=== PATIENT | male | born 1960 | race Caucasian/White ===

== ENCOUNTER 2022-01-25 12:43 | Inpatient (IN) ==
[2022-01-25] MEDS ORDERED: ALBUTEROL 2.5 MG/3 ML NEB RESP TX PRN (17:21)
[2022-01-25] MEDS ORDERED: NOREPINEPHRINE 8 MG in SODIUM CHLORIDE 0.9% 242 ML IV PRN (17:21)
[2022-01-25] MEDS ORDERED: ACETAMINOPHEN 325 MG TABLET PO PRN (17:21)
[2022-01-25] MEDS ORDERED: DEXTROSE 10% 250 ML BAG IV PRN (17:27)
[2022-01-25] MEDS ORDERED: GLUCAGON 1 MG VIAL IM PRN (17:27)
[2022-01-25] MEDS: MIDAZOLAM 100 MG in SODIUM CHLORIDE 0.9% 80 ML IV PRN (18:02)
[2022-01-25 18:07] LABS: Arterial Base Excess iSTAT -6 MMOL/L (-2.5-2.5); Arterial Bicarbonate iSTAT 20.6 MMOL/L (20-26); Arterial O2 Saturation iSTAT 99 % (95-100); Arterial PCO2 iSTAT 44 MM HG (35-48); Arterial PO2 iSTAT 149 MM HG (80-95); Arterial Total CO2 iSTAT 22 MMO/L (23-27); Arterial pH iSTAT 7.281 (7.35-7.45)
[2022-01-25 18:13] LABS: Urine Appearance Clear (Clear); Urine Color Yellow (Yellow); Urine pH 5.5 (4.5-8.0)
[2022-01-25 18:14] LABS: Bilirubin,Urine Negative (Negative); Blood, Urine Trace mg/dL (Negative); Glucose,Urine (UA) >=1000 mg/dL (Negative); Ketones,Urine 40 mg/dL (Negative); Nitrite,Urine Negative (Negative); Protein,Urine Trace mg/dL (Negative); Urine Urobilinogen 0.2 eU/dL (<2.0)
[2022-01-25 18:18] LABS: Bacteria,Urine Moderate /HPF (Few); Mucus,Urine Occasional /LPF (Occasional); RBC,Urine 4 /HPF (0-4); Squamous Epithelial Cell,Urine Occasional /HPF (0-10)
[2022-01-25 18:27] LABS: Hematocrit 42.1 VOL% (42.0-52.0); Hemoglobin 13.1 GM/DL (14.0-18.0); Immature Granulocytes % 0.5 %; Immature Granulocytes Absolute 0.03 #; Lymphocytes # 0.4 10*3/uL (1.4-4.0); Lymphocytes % 6.3 % (21.2-54.2); Mean Corpuscular HGB Conc 31.1 GM/DL (32-36); Mean Corpuscular Volume 87.7 FL (87-102); Mean Platelet Volume 10.2 FL (9.6-12.0); Monocytes # 0.6 10*3/uL (0.11-0.8); Neutrophils % 83.2 % (38.7-73.9); Platelet Count 104 T/CUMM (130-400); Red Cell Distribution Width 14.3 % (9.3-17.3); White Blood Count 5.9 T/CUMM (4-12)
[2022-01-25] MEDS: PANTOPRAZOLE 40 MG VIAL IV SCH (18:33)
[2022-01-25] MEDS: MEROPENEM 500 MG in SODIUM CHLORIDE 0.9% 100 ML IV SCH (18:37)
[2022-01-25 18:38] LABS: PT Patient Result 10.9 SECS (10.1-12.1)
[2022-01-25] MEDS: INSULIN LISPRO 100 UNIT/ML SUBCUT SCH (18:42)
[2022-01-25 18:52] LABS: Lactic Acid 4.3 MMOL/L (0.4-2.0)
[2022-01-25 19:03] LABS: Alanine Aminotransferase 24 U/L (16-61); Albumin 2.8 G/DL (3.4-5.0); Alkaline Phosphatase 107 U/L (45-117); Aspartate Amino Transferase 23 U/L (0-37); Blood Urea Nitrogen 18 MG/DL (7-18); Carbon Dioxide 22 MMOL/L (21-32); Chloride 110 MMOL/L (98-107); Glucose 290 MG/DL (74-106); Osmolality,Calculated 291.4 MOS/KG (273-304); Potassium 3.9 MMOL/L (3.5-5.1); Sodium 140 MMOL/L (136-145); Total Protein 6.5 G/DL (6.4-8.2)
[2022-01-25 20:45] LABS: Arterial Base Excess iSTAT -4 MMOL/L (-2.5-2.5); Arterial Bicarbonate iSTAT 21.9 MMOL/L (20-26); Arterial O2 Saturation iSTAT 98 % (95-100); Arterial PCO2 iSTAT 42 MM HG (35-48); Arterial PO2 iSTAT 109 MM HG (80-95); Arterial Total CO2 iSTAT 23 MMO/L (23-27); Arterial pH iSTAT 7.325 (7.35-7.45)
[2022-01-25] MEDS: ENOXAPARIN 40 MG/0.4 ML SYRINGE SUBCUT SCH (21:00)
[2022-01-26] MEDS: SODIUM CHLORIDE 0.9% 1,000 ML IV SCH ×3 (01:08→17:36)
[2022-01-26] MEDS: MEROPENEM 500 MG in SODIUM CHLORIDE 0.9% 100 ML IV SCH ×4 (01:12→17:57)
[2022-01-26] MEDS: INSULIN LISPRO 100 UNIT/ML SUBCUT SCH ×4 (01:13→17:56)
[2022-01-26 03:44] LABS: Arterial Base Excess iSTAT -5 MMOL/L (-2.5-2.5); Arterial Bicarbonate iSTAT 20.8 MMOL/L (20-26); Arterial O2 Saturation iSTAT 98 % (95-100); Arterial PCO2 iSTAT 39 MM HG (35-48); Arterial PO2 iSTAT 120 MM HG (80-95); Arterial Total CO2 iSTAT 22 MMO/L (23-27); Arterial pH iSTAT 7.333 (7.35-7.45)
[2022-01-26 04:40] LABS: Basophils % 0.2 % (0.0-0.8); Hematocrit 35.4 VOL% (42.0-52.0); Hemoglobin 10.9 GM/DL (14.0-18.0); Immature Granulocytes % 0.5 %; Immature Granulocytes Absolute 0.02 #; Lymphocytes # 0.7 10*3/uL (1.4-4.0); Lymphocytes % 17.1 % (21.2-54.2); Mean Corpuscular HGB Conc 30.8 GM/DL (32-36); Mean Corpuscular Volume 88.7 FL (87-102); Mean Platelet Volume 10.2 FL (9.6-12.0); Monocytes # 0.5 10*3/uL (0.11-0.8); Monocytes % 10.8 % (1.7-12.7); Neutrophils % 71.4 % (38.7-73.9); Platelet Count 116 T/CUMM (130-400); Red Blood Count 3.99 MC/CUMM (3.8-5.5); Red Cell Distribution Width 14.4 % (9.3-17.3); White Blood Count 4.3 T/CUMM (4-12)
[2022-01-26 05:02] LABS: Albumin 2.3 G/DL (3.4-5.0); Bilirubin,Total 0.4 MG/DL (0.20-1.00); Calcium 7.8 MG/DL (8.5-10.1); Osmolality,Calculated 289.8 MOS/KG (273-304); Potassium 3.6 MMOL/L (3.5-5.1); Total Protein 5.4 G/DL (6.4-8.2)
[2022-01-26 05:03] LABS: Risk Ratio 3.94; VLDL Cholesterol 23.4 MG/DL
[2022-01-26] MEDS: MIDAZOLAM 100 MG in SODIUM CHLORIDE 0.9% 80 ML IV PRN (07:36)
[2022-01-26] MEDS: risperiDONE 1 MG TABLET PO SCH ×2 (11:38→20:34)
[2022-01-26] MEDS ORDERED: ZINC OXIDE PASTE 113 GM TUBE TOP PRN (11:48)
[2022-01-26] MEDS: BACLOFEN 10 MG TABLET PO SCH ×2 (15:31→20:34)
[2022-01-26] MEDS: GABAPENTIN 600 MG TABLET PO SCH ×2 (15:31→20:34)
[2022-01-26] MEDS: PANTOPRAZOLE 40 MG VIAL IV SCH (17:56)
[2022-01-26] MEDS: ENOXAPARIN 40 MG/0.4 ML SYRINGE SUBCUT SCH (20:34)
[2022-01-27] MEDS: MEROPENEM 500 MG in SODIUM CHLORIDE 0.9% 100 ML IV SCH ×3 (00:10→11:51)
[2022-01-27] MEDS: INSULIN LISPRO 100 UNIT/ML SUBCUT SCH ×5 (00:10→17:46)
[2022-01-27] MEDS: MIDAZOLAM 100 MG in SODIUM CHLORIDE 0.9% 80 ML IV PRN (01:02)
[2022-01-27] MEDS: SODIUM CHLORIDE 0.9% 1,000 ML IV SCH ×2 (01:17→09:14)
[2022-01-27 03:54] LABS: Basophils % 0.3 % (0.0-0.8); Eosinophils % 0.6 % (0.00-10.9); Hematocrit 33.7 VOL% (42.0-52.0); Hemoglobin 10.5 GM/DL (14.0-18.0); Immature Granulocytes % 0.6 %; Immature Granulocytes Absolute 0.02 #; Lymphocytes # 0.9 10*3/uL (1.4-4.0); Lymphocytes % 29.7 % (21.2-54.2); Mean Corpuscular HGB Conc 31.2 GM/DL (32-36); Mean Platelet Volume 9.6 FL (9.6-12.0); Monocytes # 0.4 10*3/uL (0.11-0.8); Neutrophils % 56.8 % (38.7-73.9); Platelet Count 117 T/CUMM (130-400); Red Blood Count 3.83 MC/CUMM (3.8-5.5); Red Cell Distribution Width 14.8 % (9.3-17.3); White Blood Count 3.2 T/CUMM (4-12)
[2022-01-27 04:08] LABS: Calcium 7.9 MG/DL (8.5-10.1); Osmolality,Calculated 287.1 MOS/KG (273-304); Potassium 3.7 MMOL/L (3.5-5.1)
[2022-01-27 04:21] LABS: Arterial Base Excess iSTAT -5 MMOL/L (-2.5-2.5); Arterial Bicarbonate iSTAT 19.4 MMOL/L (20-26); Arterial O2 Saturation iSTAT 99 % (95-100); Arterial PCO2 iSTAT 35 MM HG (35-48); Arterial PO2 iSTAT 129 MM HG (80-95); Arterial Total CO2 iSTAT 20 MMO/L (23-27); Arterial pH iSTAT 7.357 (7.35-7.45)
[2022-01-27] MEDS: risperiDONE 1 MG TABLET PO SCH ×2 (08:16→20:20)
[2022-01-27] MEDS: GABAPENTIN 600 MG TABLET PO SCH ×3 (08:16→20:20)
[2022-01-27] MEDS: BACLOFEN 10 MG TABLET PO SCH ×3 (08:16→20:20)
[2022-01-27] MEDS ORDERED: ALBUTEROL 2.5 MG/3 ML NEB RESP TX PRN (15:48)
[2022-01-27] MEDS: cefTRIAXone 1,000 MG in SODIUM CHLORIDE 0.9% 100 ML IV SCH (17:13)
[2022-01-27] MEDS: PANTOPRAZOLE 40 MG VIAL IV SCH (17:13)
[2022-01-27] MEDS: ENOXAPARIN 40 MG/0.4 ML SYRINGE SUBCUT SCH (20:20)
[2022-01-28] MEDS: INSULIN LISPRO 100 UNIT/ML SUBCUT SCH ×5 (00:42→21:04)
[2022-01-28 04:23] LABS: Basophils % 0.3 % (0.0-0.8); Eosinophils # 0.1 10*3/uL (0.0-0.87); Eosinophils % 1.9 % (0.00-10.9); Hematocrit 33.5 VOL% (42.0-52.0); Hemoglobin 10.5 GM/DL (14.0-18.0); Immature Granulocytes % 0.6 %; Immature Granulocytes Absolute 0.02 #; Lymphocytes # 1.1 10*3/uL (1.4-4.0); Lymphocytes % 34.8 % (21.2-54.2); Mean Corpuscular HGB Conc 31.3 GM/DL (32-36); Mean Platelet Volume 9.7 FL (9.6-12.0); Monocytes # 0.3 10*3/uL (0.11-0.8); Monocytes % 8.4 % (1.7-12.7); Platelet Count 119 T/CUMM (130-400); Red Blood Count 3.85 MC/CUMM (3.8-5.5); Red Cell Distribution Width 14.6 % (9.3-17.3); White Blood Count 3.2 T/CUMM (4-12)
[2022-01-28 04:41] LABS: Calcium 8.5 MG/DL (8.5-10.1); Osmolality,Calculated 282.5 MOS/KG (273-304); Potassium 3.7 MMOL/L (3.5-5.1)
[2022-01-28] MEDS: GABAPENTIN 600 MG TABLET PO SCH ×3 (09:34→21:05)
[2022-01-28] MEDS: BACLOFEN 10 MG TABLET PO SCH ×3 (09:35→21:05)
[2022-01-28] MEDS: risperiDONE 1 MG TABLET PO SCH ×2 (09:35→21:05)
[2022-01-28] MEDS ORDERED: GABAPENTIN 600 MG TABLET PO SCH (15:00)
[2022-01-28] MEDS: cefTRIAXone 1,000 MG in SODIUM CHLORIDE 0.9% 100 ML IV SCH (17:01)
[2022-01-28] MEDS: ASCORBIC ACID 500 MG TABLET PO SCH (21:05)
[2022-01-28] MEDS: ENOXAPARIN 40 MG/0.4 ML SYRINGE SUBCUT SCH (21:05)
[2022-01-29 04:20] LABS: Basophils % 0.3 % (0.0-0.8); Eosinophils # 0.1 10*3/uL (0.0-0.87); Eosinophils % 2.1 % (0.00-10.9); Hematocrit 33.2 VOL% (42.0-52.0); Hemoglobin 10.7 GM/DL (14.0-18.0); Immature Granulocytes % 1.5 %; Immature Granulocytes Absolute 0.05 #; Lymphocytes # 1.1 10*3/uL (1.4-4.0); Lymphocytes % 33.2 % (21.2-54.2); Mean Corpuscular HGB Conc 32.2 GM/DL (32-36); Mean Corpuscular Volume 84.5 FL (87-102); Mean Platelet Volume 9.7 FL (9.6-12.0); Monocytes # 0.2 10*3/uL (0.11-0.8); Neutrophils % 55.9 % (38.7-73.9); Platelet Count 121 T/CUMM (130-400); Red Blood Count 3.93 MC/CUMM (3.8-5.5); Red Cell Distribution Width 14.3 % (9.3-17.3); White Blood Count 3.3 T/CUMM (4-12)
[2022-01-29 04:33] LABS: Calcium 8.3 MG/DL (8.5-10.1); Osmolality,Calculated 278.8 MOS/KG (273-304); Potassium 3.6 MMOL/L (3.5-5.1)
[2022-01-29] MEDS: ASCORBIC ACID 500 MG TABLET PO SCH ×2 (08:31→20:35)
[2022-01-29] MEDS: MAGNESIUM OXIDE 400 MG TABLET PO SCH (08:32)
[2022-01-29] MEDS: BACLOFEN 10 MG TABLET PO SCH ×3 (08:32→20:35)
[2022-01-29] MEDS: PANTOPRAZOLE 40 MG TABLET PO SCH (08:32)
[2022-01-29] MEDS: CETIRIZINE 10 MG TABLET PO SCH (08:32)
[2022-01-29] MEDS: CHOLECALCIFEROL 1,000 UNIT TABLET PO SCH (08:32)
[2022-01-29] MEDS: risperiDONE 1 MG TABLET PO SCH ×2 (08:32→20:35)
[2022-01-29] MEDS: allopurinoL 100 MG TABLET PO SCH (08:32)
[2022-01-29] MEDS: GABAPENTIN 600 MG TABLET PO SCH ×3 (08:47→20:35)
[2022-01-29] MEDS: INSULIN LISPRO 100 UNIT/ML SUBCUT SCH ×4 (08:47→20:36)
[2022-01-29 11:05] LABS: % Iron Saturation 25.8 % (18-50)
[2022-01-29 11:38] LABS: Folate > 24.00 NG/ML (5.38-24.0); Vitamin B12 417 PG/ML (211-911)
[2022-01-29] MEDS: metFORMIN 500 MG TABLET PO SCH (11:44)
[2022-01-29] MEDS ORDERED: MAGNESIUM SULF RIDER 2 GM/50 ML PREMIX IV ONE (17:00)
[2022-01-29] MEDS: cefTRIAXone 1,000 MG in SODIUM CHLORIDE 0.9% 100 ML IV SCH (17:04)
[2022-01-29] MEDS: INSULIN REGULAR 100 UNIT/ML SUBCUT SCH ×2 (17:07→20:36)
[2022-01-29] MEDS: ENOXAPARIN 40 MG/0.4 ML SYRINGE SUBCUT SCH (20:35)
[2022-01-30 06:00] LABS: Basophils % 0.7 % (0.0-0.8); Eosinophils # 0.1 10*3/uL (0.0-0.87); Hematocrit 36.2 VOL% (42.0-52.0); Hemoglobin 11.7 GM/DL (14.0-18.0); Immature Granulocytes % 1.3 %; Immature Granulocytes Absolute 0.04 #; Lymphocytes # 1.1 10*3/uL (1.4-4.0); Lymphocytes % 36.5 % (21.2-54.2); Mean Corpuscular HGB Conc 32.3 GM/DL (32-36); Mean Corpuscular Volume 83.2 FL (87-102); Mean Platelet Volume 9.7 FL (9.6-12.0); Monocytes # 0.3 10*3/uL (0.11-0.8); Monocytes % 8.4 % (1.7-12.7); Neutrophils % 50.1 % (38.7-73.9); Platelet Count 150 T/CUMM (130-400); Red Blood Count 4.35 MC/CUMM (3.8-5.5); Red Cell Distribution Width 14.1 % (9.3-17.3)
[2022-01-30 06:13] LABS: Calcium 8.8 MG/DL (8.5-10.1); Potassium 3.3 MMOL/L (3.5-5.1)
[2022-01-30] MEDS ORDERED: SEMAGLUTIDE 7 MG PO SCH (09:00)
[2022-01-30] MEDS ORDERED: FERROUS SULFATE 325 MG TABLET PO SCH (09:00)
[2022-01-30] MEDS: INSULIN REGULAR 100 UNIT/ML SUBCUT SCH ×2 (09:03→16:00)
[2022-01-30] MEDS: ASCORBIC ACID 500 MG TABLET PO SCH (09:04)
[2022-01-30] MEDS: risperiDONE 1 MG TABLET PO SCH (09:04)
[2022-01-30] MEDS: allopurinoL 100 MG TABLET PO SCH (09:04)
[2022-01-30] MEDS: GABAPENTIN 600 MG TABLET PO SCH ×2 (09:04→15:59)
[2022-01-30] MEDS: INSULIN LISPRO 100 UNIT/ML SUBCUT SCH ×3 (09:04→16:00)
[2022-01-30] MEDS: PANTOPRAZOLE 40 MG TABLET PO SCH (09:05)
[2022-01-30] MEDS: CETIRIZINE 10 MG TABLET PO SCH (09:05)
[2022-01-30] MEDS: BACLOFEN 10 MG TABLET PO SCH ×2 (09:05→15:59)
[2022-01-30] MEDS: metFORMIN 500 MG TABLET PO SCH (09:05)
[2022-01-30] MEDS: CHOLECALCIFEROL 1,000 UNIT TABLET PO SCH (09:05)
[2022-01-30] MEDS: MAGNESIUM OXIDE 400 MG TABLET PO SCH (09:05)
[2022-01-30] MEDS ORDERED: POTASSIUM CHLORIDE 20 MEQ TABLET PO ONE (10:40)
[2022-01-30] MEDS: cefTRIAXone 1,000 MG in SODIUM CHLORIDE 0.9% 100 ML IV SCH (16:01)
[2022-01-30 16:10] VITALS: BP 130/97
[2022-02-04] MEDS ORDERED: ANASTROZOLE 1 MG TABLET PO SCH (09:00)
== END 2022-01-30 17:57 | DRG 698 ==
LOC: SUATTDRO 17:15 → N.CC 17:15 → N.5E 01-29 11:56
PROVIDERS: ADMIT Internal Medicine; ATTEND Internal Medicine